=== PATIENT | female | born 1960 | race Caucasian/White ===

== ENCOUNTER 2017-02-06 18:05 | Emergency (ER) | payer OTHER ==
[2017-02-06] MEDS: METHYLPREDNISOLONE 125 MG INJ IM (20:37)
[2017-02-06] MEDS: IPRATROPIUM (NEB) 0.5 MG/2.5 ML AMP NEB (20:37)
[2017-02-06] MEDS: LEVALBUTEROL (NEB) 1.25 MG/0.5 ML AMP INH (20:37)
== END 2017-02-06 21:15 | disposition home or self-care (01) ==
LOC: FTE 18:05
DX: J45.901 Unspecified asthma with (acute) exacerbation (principal); I10 Essential (primary) hypertension
CPT/HCPCS: 94664; 96372; 99284-25

== ENCOUNTER 2018-01-15 13:17 | Emergency (ER) | payer SELFPAY, OTHER ==
[2018-01-15] MEDS: ACETAMINOPHEN 325 MG TAB PO (13:47)
== END 2018-01-15 14:25 | disposition home or self-care (01) ==
LOC: FTE 13:17
DX: H61.21 Impacted cerumen, right ear (principal); I10 Essential (primary) hypertension; J45.909 Unspecified asthma, uncomplicated; Z86.73 Personal history of transient ischemic attack (TIA), and cerebral infarction without residual deficits
CPT/HCPCS: 69209; 99282-25

== ENCOUNTER 2018-04-13 00:24 | Emergency (ER) | payer OTHER ==
[2018-04-13] MEDS: hydrALAzine 20 MG INJ IV (02:30)
[2018-04-13 03:10] LABS: ADD MAN DIFF? NO
[2018-04-13 03:12] LABS: BASOPHILS % 0.6 % (0.0-2.0); EOSINOPHILS # 0.3 10^3/ul (0.0-0.5); EOSINOPHILS % 5.3 % (0.0-7.0); HEMATOCRIT 35.2 % (37.0-47.0); HEMOGLOBIN 11.4 g/dl (12.0-16.0); LYMPHOCYTES # 2.3 10^3/ul (0.8-2.9); MEAN CORPUSCULAR HEMOGLOBIN 28.9 pg (29.0-33.0); MEAN CORPUSCULAR HGB CONC 32.4 g/dl (32.0-37.0); MEAN CORPUSCULAR VOLUME 89.1 fl (82.0-101.0); MEAN PLATELET VOLUME 10.9 fl (7.4-10.4); MONOCYTE # 0.4 10^3/ul (0.3-0.9); NEUTROPHIL # 3.3 10^3/ul (1.6-7.5); NEUTROPHILS % 51.6 % (39.0-77.0); PLATELET COUNT 232 10^3/UL (140-415); RED BLOOD COUNT 3.95 10^6/ul (4.20-5.40); RED CELL DISTRIBUTION WIDTH 12.9 % (11.5-14.5)
[2018-04-13 03:12] LABS: WHITE BLOOD COUNT 6.5 10^3/ul (4.8-10.8)
[2018-04-13 03:32] LABS: INR 0.83; PARTIAL THROMBOPLASTIN TIME 29.7 Sec (23.0-35.0); PROTIME 11.5 Sec (11.9-14.9); PT RATIO 0.9
[2018-04-13 03:53] LABS: ANION GAP 6 (5-13); BLOOD UREA NITROGEN 10 mg/dl (7-20); CALCIUM 10.2 mg/dl (8.4-10.2); CARBON DIOXIDE 29 mmol/L (21-31); CHLORIDE 108 mmol/L (97-110); CREATININE 0.55 mg/dl (0.44-1.00); Estimated GFR > 60 mL/min (>60); GLUCOSE 111 mg/dl (70-220); POTASSIUM 3.8 mmol/L (3.5-5.1); SODIUM 143 mmol/L (135-144)
[2018-04-13 04:05] LABS: TROPONIN-I < 0.012 ng/ml (0.000-0.120)
== END 2018-04-13 04:09 | disposition home or self-care (01) ==
LOC: E/R 00:24
DX: I10 Essential (primary) hypertension (principal); J45.909 Unspecified asthma, uncomplicated
CPT/HCPCS: 36415; 70450; 71045; 80048; 84484; 85025; 85610; 85730; 93005; 99285-25